=== PATIENT | male | born 1945 | race Caucasian/White ===

== ENCOUNTER 2016-09-20 04:51 | Inpatient (IN) | payer OTHER ==
[2016-09-14 17:29] LABS: ASCORBIC ACID (UR NOT ORDER) NEG (NEG); BILIRUBIN, URINE NEGATIVE (NEG); KETONE, URINE NEGATIVE (NEG)
[2016-09-14 18:39] LABS: BASOPHILS 0.6 %; BASOPHILS ABSOLUTE 0.03 10/3/uL (0.0-0.16); EOSINOPHILS 2.1 %; EOSINOPHILS ABSOLUTE 0.11 10/3/uL (0.0-0.53); HEMOGLOBIN 14.6 g/dL (13.6-17.8); LYMPHOCYTES 32.5 %; MEAN CORPUS HGB CONC 34.2 g/dL (32.0-36.0); MEAN CORPUSCULAR HEMOGLOB 33.9 pg (26.0-34.0); MONOCYTES ABSOLUTE 0.47 10/3/uL (0.21-1.20); NEUTROPHILS 55.8 %; NEUTROPHILS ABSOLUTE 2.92 10/3/uL (2.02-8.40); PLATELET COUNT 197 10/3/uL (150-400); RBC DISTRIBUTION WIDTH 12.7 % (12.0-16.0); RED CELL COUNT 4.31 10/6/uL (4.7-6.1)
[2016-09-14 18:43] LABS: HEMATOCRIT 42.7 % (40.0-51.0); MANUAL DIFF NO %; MEAN CORPUSCULAR VOLUME 99.1 fL (80-100); WHITE BLOOD CELLS 5.2 10/3/uL (4.5-10.5)
[2016-09-14 18:45] LABS: PARTIAL THROMBO TIME 29.1 SEC (22.5-37.2); PROTIME (NOT ORD) 13.3 SEC (12.0-14.5)
[2016-09-14 18:52] LABS: A/G RATIO 1.4 (0.7-1.9); ALBUMIN 3.8 G/DL (3.5-5.0); ALKALINE PHOSPHATASE 85 U/L (45-117); BUN (BLOOD UREA NITROGEN) 17 MG/DL (6-23); CHLORIDE, SERUM 105 MMOL/L (96-112); CO2 (CARBON DIOXIDE) 29 MMOL/L (24-34); CREATININE 1.09 MG/DL (0.70-1.30); GFR AFRICAN AMERICAN 78 ML/MIN (>=60); GFR NON AFRICAN AMERICAN 67 ML/MIN (>=60); GLOBULIN 2.7 G/DL (2.5-4.1); POTASSIUM, SERUM 4.5 MMOL/L (3.5-5.3); SGOT(AST) 11 U/L (5-40); SGPT(ALT) 21 U/L (5-65); SODIUM, SERUM 142 MMOL/L (135-148); TOTAL PROTEIN 6.5 G/DL (6.0-8.5)
[2016-09-14 18:54] LABS: GLUCOSE, SERUM 109 MG/DL (60-99); TOTAL BILIRUBIN 0.3 MG/DL (0-1.2)
--- NOTE | ~2016-09-20 | OP ---
Record Of Operation [facility] [address] [place]. 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 PROCEDURE PERFORMED: Left total knee arthroplasty revision/polyethylene exchange with lateral joint debridement. SURGEON: Josemanuel Mccarty M.D. BOOK RETAILER: Sherri Shaffer. ANESTHESIA: Spinal with sedation, adductor block, and local infusion. PROCEDURE IN DETAIL: The patient was clearly identified after obtaining informed consent, was brought to the operating room at [facility], where he was induced under spinal anesthesia after having already been given an adductor block in the preop holding area. Subsequently, his left lower extremity was prepped and draped in usual manner. A time-out procedure was performed. Esmarch exsanguination was performed and tourniquet was elevated to 350 mmHg and successfully tested. This concluded, range of motion is excellent. This prepped slight. Varus/valgus played with flexion which was dramatic that we noted when he was sitting in the chair, but this concluded, anterior approach to the knee was performed. Skin was divided. Fascial planes were elevated and the medial parapatellar approach was then performed. Entering the joint, there was a minimal amount of normal appearing joint fluid which was sent to the laboratory for microbiology and subsequently releasing some appropriate tissues, the knee was then carefully flexed subluxing the patella. The polyethylene was removed and before doing this, the lateral and posterolateral area was having palpable pain without evidence of any particular obvious pathology. There was one small area that has some erythema and after removing the polyethylene which ended up itself looks normal. There was no evidence of abnormal wear, scuffing, or any change at all. The posterolateral corner and lateral aspect of the knee were further inspected. There were few rather tight fibrinous bands along the posterolateral aspect of the region which were carefully released. A rongeur was utilized to remove any burs or thickened areas of tissue that may be contributing to some pain and after inspecting the area and ranging, we trialed polyethylene of 7/8 feels quite good, therefore, it was placed. After copious irrigation was performed, re-inspecting the joint, any remaining tissues that could be impinging or causing discomfort are released or rongeured and this concluded, the area looks quite good. Copious irrigation was performed. Tourniquet was deflated. Tranexamic acid was utilized. A local infusion of anesthetics was instilled through the tissues, at which point the knee was then carefully closed over a Hemovac drain in layers. Dressings applied. The patient was allowed to awaken and was transferred to the recovery room in stable condition having tolerated the procedure well. ESTIMATED BLOOD LOSS: Less than 50. Record Of Operation [address] [place]. [address] NAME: CHERIE GARCIA : 43 STATUS : ADM IN [facility]#: [id number] AGE: 71 ADM/REG DATE : 09/20/16 MR#: [id number] REPORT SERV DATE: 09/20/16 DICTATED BY: JOSEMANUEL MCCARTY DATE: 09/20/16 REPORT STATUS : Draft TRANSCRIBED BY: MODL DATE: 09/20/16 FLUIDS: 1100. TOURNIQUET TIME: 27 minutes. PATHOLOGY: Sent specimen. MICROBIOLOGY: Sent specimen. COMPLICATIONS: None. SPONGE AND NEEDLE COUNTS: Reportedly correct. ANTIBIOTICS: Administered appropriately preoperatively and ordered to be discontinued within 23 hours. IMPLANTS: Attune knee by DePuy, polyethylene size 7/8. BUTCH/DIONNE Josemanuel Mccarty M.D. / [id number] CC: Josemanuel Mccarty M.D.
[~2016-09-20 04:51] MED LIST: ASAB PO; C5; DIL2TAB PO; LEVOTHYROXIN25 MCG PO; MAG OXIDE250 MG PO; MOBIC7.5 PO; OMEPRAZOLE; POTASSIUM OTC PO; PRILO PO; T PO; VITAMIN B-121000 MC1 SL
[2016-09-21 03:48] LABS: HEMATOCRIT 34.4 % (40.0-51.0); HEMOGLOBIN 12.2 g/dL (13.6-17.8)
[2016-09-21 03:55] LABS: INTERNATIONAL NORMAL RATI 1.2 UNITS (-); PROTIME (NOT ORD) 14.9 SEC (12.0-14.5)
[2016-09-21 04:02] LABS: BUN (BLOOD UREA NITROGEN) 17 MG/DL (6-23); CALCIUM, SERUM 8.1 MG/DL (8.5-10.4); CHLORIDE, SERUM 105 MMOL/L (96-112); CO2 (CARBON DIOXIDE) 26 MMOL/L (24-34); CREATININE 1.31 MG/DL (0.70-1.30); GFR AFRICAN AMERICAN 63 ML/MIN (>=60); GFR NON AFRICAN AMERICAN 54 ML/MIN (>=60); POTASSIUM, SERUM 4.2 MMOL/L (3.5-5.3); SODIUM, SERUM 139 MMOL/L (135-148)
[2016-09-21 04:03] LABS: GLUCOSE, SERUM 131 MG/DL (60-99)
[2016-09-21] MEDS ORDERED: C5 PO (12:44)
[2016-09-21] MEDS ORDERED: OXYCOD PO (12:44)
== END 2016-09-21 13:31 | disposition home or self-care (01) | DRG 468 ==
LOC: SDC/OF 04:51 → 3SO 10:22
PROVIDERS: Orthopaedic Surgery
PROC: 0SPD0JZ Removal of Synthetic Substitute from Left Knee Joint, Open Approach (ICD-10-PCS; 2016-09-20)
PROC: 0SRD0JZ Replacement of Left Knee Joint with Synthetic Substitute, Open Approach (ICD-10-PCS; principal; 2016-09-20 06:30)
DX: T84.023A Instability of internal left knee prosthesis, initial encounter (principal)
CPT/HCPCS: 36415; 71020; 73560-LT; 80048; 80053; 81001; 85014; 85018; 85025; 85610; 85730; 86850; 86900; 86901; 87015; 87070; 87075; 87102; 87116; 87205; 87641; 88300; 88304; 88305; 93005; 97110-GP; 97116-GP; 97161-GP; 97165-GO; A9270-GY; C1776; J0690; J1885; J2250; J2274; J2405; J2795; J3010